=== PATIENT | male | born 1985 | race Two or more races ===

== ENCOUNTER 2019-01-07 12:09 | Emergency (ER) | payer OTHER, SELFPAY ==
[2019-01-07 12:11] VITALS: BP 137/101; PULSE 88; RESP 16; TEMP 36.4; O2SAT 95; BMI 29.7
[2019-01-07 12:15] VITALS: O2SAT 98
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
[2019-01-07] MEDS: Ketorolac 15 MG/ML Vial IV (12:26)
[2019-01-07] MEDS: Diphth,Pertuss(Acell),Tet Vac 0.5 ML Vial IM (12:26)
[2019-01-07] MEDS: Ondansetron 4 MG/2 ML Vial IV (12:27)
[2019-01-07] MEDS: Morphine 4 MG/ML Syringe IV (12:27)
== END 2019-01-07 14:05 | disposition home or self-care (01) ==
PROVIDERS: Emergency Provider Emergency Medicine
DX: S42.022A Displaced fracture of shaft of left clavicle, initial encounter for closed fracture (principal); V29.88XA Motorcycle rider (driver) (passenger) injured in other specified transport accidents, initial encounter; Y93.I9 Activity, other involving external motion; Y92.9 Unspecified place or not applicable; E03.9 Hypothyroidism, unspecified
CPT/HCPCS: 73000; 90715; 96374; 96375; 99285; A4216; J2405